=== PATIENT | male | born 1955 | race Caucasian/White ===

== ENCOUNTER → 2024-04-22 14:22 | Outpatient (REF) | payer MEDICARE, BC, OTHER, SELFPAY | LOC: HWRAD 14:22 | PROVIDERS: ATTENDING PHYSICIAN Hospitalist | DX: R19.00 Intra-abdominal and pelvic swelling, mass and lump, unspecified site (principal); R22.41 Localized swelling, mass and lump, right lower limb | CPT/HCPCS: 76882 ==

== ENCOUNTER 2024-08-05 06:18 | Day surgery (SDC) | payer MEDICARE, BC, SELFPAY ==
[2024-07-29 13:06] VITALS: BMI 30.3
[2024-08-05] VITALS (8 sets, daily range): BP systolic 132–158; BP diastolic 76–89; BMI 30.3
[2024-08-05] MEDS: TYLENOL 1000 MG PO (08:39)
[2024-08-05] MEDS: NORMOSOL-R/PLASMALYTE-A 1000 IV (08:42)
--- NOTE | 2024-08-05 08:57 | W.SUR.PREOP ---
Pre-Operative Surgical Note
-
I have examined this patient prior to the performance of the scheduled procedure.
The patient's condition is unchanged from the time of the current History and
Physical and the patient is able to undergo the scheduled procedure.
--- NOTE | 2024-08-05 11:24 | W.IMMPOSTOP ---
Surgical Immed Post Op Note
-
Primary Surgeon: Surendra Shane MD
Assisting Surgeon: None
Pre-op Diagnosis: Right inguinal hernia
Post-op Diagnosis: Bilateral inguinal hernias
Procedure Performed: Robotic bilateral inguinal hernia repair with mesh (GRANT approach)
Anesthesia Type: General
Specimen / Cultures: None
Estimated Blood Loss: 3 cc
Complications: None
Operative Findings: Bilateral inguinal hernias were identified at the start of the case. On the right side he had a medium size direct defect and minuscule indirect defect along with a very small cord lipoma. He also had a small femoral hernia.
On the left side he had a small direct defect, small indirect defect and no cord lipoma. No femoral defect was identified on the left side. After achieving the critical view of the MPO bilaterally the space was reinforced with Bard 3D max mid
weight uncoated polypropylene mesh.
--- NOTE | 2024-08-05 11:26 | OR.RPT ---
Operative Report
Operative Report
Patient Name: Misael Abdi
: 1955
Date of Operation: 08/05/2024
Preoperative Diagnosis: Reducible Inguinal hernia, right
Postoperative Diagnosis: Bilateral inguinal hernias
Procedure(s):
Robotic bilateral inguinal Hernia Repair with mesh, (GRANT approach)
Surgeon(s):
Dr. Shane
Bank Credit Card Collection Clerk(s):
MORIAH Conway
Anesthesia: General
Estimated Blood Loss: 3 cc
Urine Output: None
Drains/Lines/Implants: Large 3D Max Bard mid weight uncoated polypropylene mesh x2
Specimens: None
Indication for surgery: The patient has a history of groin pain and noted on exam to have a right, possible left inguinal Hernia(s). Following review of therapeutic options they have elected to undergo a minimally invasive repair.
Operative Findings: Bilateral inguinal hernias were identified at the start of the case. On the right side he had a medium size direct defect and minuscule indirect defect along with a very small cord lipoma. He also had a small femoral hernia.
On the left side he had a small direct defect, small indirect defect and no cord lipoma. No femoral defect was identified on the left side. After achieving the critical view of the MPO bilaterally the space was reinforced with Bard 3D max mid
weight uncoated polypropylene mesh.
Details of the operation:
The patient was brought to the Operating Room and placed in the supine position with the arms tucked. IV antibiotics were infused and Venodyne stockings placed. Following uneventful induction of general endotracheal anesthesia, an orogastric tube
was placed. The abdomen was prepped and draped in the usual sterile fashion. The abdomen was entered using a Veress technique which required 1 pass, pneumoperitoneum to 15 mmHg was obtained without difficulty. An 8mm trochar was passed through the
abdominal wall roughly 20 cm cephalad to the inguinal canal. We then confirmed that no inadvertent injury was made while passing the trocar or Veress needle. We then placed two additional 8 mm ports in the left upper and right upper quadrants. We
then docked the robot with a Prograsper in the left hand port and monopolar scissors in the right. Bilateral inguinal hernias were immediately identified. We began on the symptomatic right side by creating a flap at the level of the ASIS laterally
working our way medially to the medial umbilical fold. Staying onto the peritoneum we were able to circumferentially dissect around the hernia sac and and peel it off of the underlying spermatic cord and testicular vessels, taking care to preserve
them. Medially we identified the midline pubis as well as Edilberto's ligament and ensured to dissect 2 cm below the pubic rim over the bladder. After exposure of the entire myopectineal orifice we identified and reduced: A minuscule sized indirect
inguinal hernia, a medium sized direct inguinal hernia, a small femoral hernia and a small cord lipoma that was reduced. We then performed the exact same dissection on the left side and found a small indirect inguinal hernia, a small direct
inguinal hernia, no femoral hernia or cord lipoma were identified. After achieving the critical view of the MPO we then fixated large 3D max mesh with a 2-0 Vicryl stitch at coopers medially and superior laterally. The flaps were then closed with
a running 2-0 barbed monocryl suture ensuring that the tail was cut flush with the medial fat pad so that no barbs were exposed. During the closure of the flap an Angiocath was inserted and 30 cc of quarter percent Marcaine was instilled. The area
in the flap cavity was then evacuated of air confirming that the mesh was flush and there were no folds. A small rent in the peritoneum of the right side was noted and closed with 2-0 Vicryl. All needles and instruments were then removed and the
robot was undocked. The abdomen was then desufflated, and pneumoperitoneum evacuated. All skin sites were then closed with 4-0 Monocryl followed by Dermabond. Counts were correct and overall, the patient tolerated the procedure well and was taken
to the Recovery Room postoperatively in stable condition.
I was the attending physician and performed the procedure with assistance of the PA above. The assistance of MORIAH Conway was required due to the complexity of the procedure. During the procedure Acacia assisted with port placement, instrument
and needle exchanges, and closure of the wound. I was present for all portions of the case, excluding skin closure.
Surendra Shane MD
[2024-08-05] MEDS: ROXICODONE 5 MG PO (12:51)
== END 2024-08-05 13:20 | disposition home or self-care (01) ==
LOC: SDS 06:18
PROVIDERS: ATTENDING PHYSICIAN Surgery; FAMILY PHYSICIAN Internal Medicine
DX: K40.20 Bilateral inguinal hernia, without obstruction or gangrene, not specified as recurrent (principal)
CPT/HCPCS: 49650; 36415; 93005; C1781